=== PATIENT | male | born 1980 | race Caucasian/White ===

== ENCOUNTER 2023-05-31 06:04 | Day surgery (SDC) | payer BC ==
[2023-05-28 10:45] VITALS: BMI 25.7
[~2023-05-31 06:04] MED LIST: LACTATED RINGERS SOLUTION 1,000 ML IV SCH; ONDANSETRON 4 MG/2 ML VIAL IVPUSH PRN; PROMETHAZINE HCL 25 MG/1 ML VIAL IVPB PRN; oxyCODONE HCL 5 MG TABLET PO PRN
[2023-05-31] MEDS ORDERED: LIDOCAINE HCL/PF 2% SDV 5ML VIAL ONE (07:08)
[2023-05-31] MEDS ORDERED: PROPOFOL 40 ML ONE (07:09)
[2023-05-31] MEDS ORDERED: ceFAZolin SODIUM 1 GM VIAL ONE (07:13)
[2023-05-31] MEDS ORDERED: BUPIVACAINE HCL/PF 2.5 MG/ML - 30 ML VIAL IJ ONE (07:14)
[2023-05-31] MEDS ORDERED: EPINEPHrine 1:1,000 1,000 MCG/ML ML ONE (07:14)
[2023-05-31] MEDS ORDERED: KETOROLAC TROMETHAMINE 30 MG/1 ML VIAL ONE (07:14)
[2023-05-31] MEDS ORDERED: DEXAMETHASONE SOD PHOSPHATE 4 MG/1 ML VIAL ONE (07:14)
[2023-05-31] MEDS ORDERED: ONDANSETRON 4 MG/2 ML VIAL ONE (07:14)
[2023-05-31] MEDS ORDERED: SUCCINYLCHOLINE CHLORIDE 200 MG/10 ML SYRINGE ONE (07:15)
[2023-05-31] MEDS ORDERED: MIDAZOLAM HCL 2 MG/2 ML SINGLE DOSE VIAL ONE (07:16)
[2023-05-31] MEDS ORDERED: ACETAMINOPHEN INJECTION 100 ML IVPB ONE (07:31)
[2023-05-31] MEDS ORDERED: oxyCODONE HCL 5 MG TABLET PO PRN ×2 (08:46→10:05)
[2023-05-31] MEDS ORDERED: PROMETHAZINE HCL 25 MG/1 ML VIAL IVPB PRN (08:46)
[2023-05-31] MEDS ORDERED: ONDANSETRON 4 MG/2 ML VIAL IVPUSH PRN (08:46)
[2023-05-31] MEDS ORDERED: FENTANYL CITRATE/PF 50 MCG/ML VIAL ONE (08:46)
[2023-05-31] MEDS ORDERED: LACTATED RINGERS SOLUTION 1,000 ML IV SCH (09:00)
[2023-05-31] MEDS ORDERED: oxyCODONE HCL 5 MG TABLET PO ONE (09:55)
[2023-05-31 10:11] VITALS: RESP 20
[2023-05-31 10:30] VITALS: BP 132/83; PULSE 85; TEMP 97.4
== END 2023-05-31 11:00 | disposition home or self-care (01) ==
LOC: FASU 06:04
PROVIDERS: ATTEND Orthopaedic Surgery Sports Medicine
PROC: 0SBC4ZZ Excision of Right Knee Joint, Percutaneous Endoscopic Approach (ICD-10-PCS; 2023-05-31)
PROC: 0SBC4ZZ Excision of Right Knee Joint, Percutaneous Endoscopic Approach (ICD-10-PCS; principal; 2023-05-31 08:02)
DX: S83.241A Other tear of medial meniscus, current injury, right knee, initial encounter (principal); M94.261 Chondromalacia, right knee; M65.861 Other synovitis and tenosynovitis, right lower leg; X58.XXXA Exposure to other specified factors, initial encounter; Y92.9 Unspecified place or not applicable; Y93.9 Activity, unspecified
CPT/HCPCS: 94760